=== PATIENT | male | born 1955 | race Caucasian/White ===

== ENCOUNTER → 2016-05-04 | Outpatient (CLI) | payer BC ==
[2016-05-04 09:46] LABS: BASOPHILS % (AUTO) 1 % (0-2); EOSINOPHILS # (AUTO) 0.6 10^3uL; EOSINOPHILS % (AUTO) 8 % (0-4); LYMPHOCYTES # (AUTO) 1.4 X10^3; MEAN CORPUSCULAR HEMOGLOBIN 28.9 PG (26.0-34.0); MEAN CORPUSCULAR VOLUME 85 FL (80-100); MEAN PLATELET VOLUME 10.3 FL (6.0-9.5); MONOCYTES # (AUTO) 0.6 X10^3; MONOCYTES % (AUTO) 8 % (3-11); NEUTROPHILS # (AUTO) 4.7 X10^3; NEUTROPHILS % (AUTO) 64 % (51-67); PLATELET COUNT 250 10^3uL (150-450); WHITE BLOOD COUNT 7.33 10^3uL (4.0-11.0)
[2016-05-04 10:04] LABS: ALBUMIN 3.8 g/dL (3.4-5.0); ALKALINE PHOSPHATASE 103 U/L (38-126); ANION GAP 13.7 MEQ/L (3-15); BUN/CREATININE RATIO 18 (10-20); CALCULATED IONIZED CALCIUM 4.3 mg/dL (3.8-4.6); TOTAL PROTEIN 6.6 g/dL (6.4-8.5)
== END ==
LOC: LAB 09:32
PROVIDERS: ATTEND Family Medicine
DX: Z00.00 Encounter for general adult medical examination without abnormal findings (principal); Z12.5 Encounter for screening for malignant neoplasm of prostate; E13.65 Other specified diabetes mellitus with hyperglycemia
CPT/HCPCS: 36415; 71020; 80053; 80061; 83036; 84153; 84436; 84443; 85025; 93005